=== PATIENT | female | born 1980 | race Two or more races ===

== ENCOUNTER 2021-12-13 09:54 | Outpatient (CLI) | payer MEDICAID | END 2021-12-13 23:59 | disposition home or self-care (01) | LOC: LAB 09:54 | PROVIDERS: ATTEND Student in an Organized Health Care Education/Training Program | DX: Z01.812 Encounter for preprocedural laboratory examination (principal); Z20.822 Contact with and (suspected) exposure to COVID-19 | CPT/HCPCS: C9803; U0003 ==

== ENCOUNTER 2021-12-19 10:05 | Inpatient (IN) | payer MEDICAID ==
[~2021-12-19] VITALS: Ht 154.9 cm; Wt 103.4 kg
[~2021-12-19 10:05] MED LIST: BUPIVACAINE 0.5 % PF 150 MG/30 ML VIAL ONE; EPINEPHRINE (1:1000) 1 MG/ML AMPUL ONE; methylPREDNISolone ACETATE 80 MG/ML VIAL ONE
--- NOTE | 2021-12-19 10:40 | NUR ---
MS RN ADMITTING NOTES PATIENT CAME IN FOR A DAY SURGERY. PATIENT A/O X4, ABLE TO MAKE NEEDS KNOWN. MEDICALLY STABLE. WILL CONTINUE TO MONITOR.
[2021-12-19] MEDS ORDERED: PRED5DRO16 RIGHTEYE (10:47)
[2021-12-19] MEDS ORDERED: LATA2.5D15 RIGHTEYE (10:47)
[2021-12-19 11:00] VITALS: BP 148/79
[2021-12-19] MEDS ORDERED: FENTANYL PF 100MCG/2ML AMPUL ONE ×3 (11:33→14:37)
[2021-12-19] MEDS ORDERED: ROCURONIUM BROMIDE 50 MG/5 ML ONE (11:34)
[2021-12-19] MEDS ORDERED: MIDAZOLAM HCL 2 MG/2ML VIAL ONE (11:34)
--- NOTE | 2021-12-19 11:35 | NUR ---
MS RN NOTES PATIENT PICKED UP BY OR
--- NOTE | 2021-12-19 14:40 | NUR ---
MS RN NOTES PATIENT BACK FROM OR. MEDICALLY STABLE. VS WNL. WILL CONTINUE TO MONITOR PATIENT.
[2021-12-19] MEDS ORDERED: ACETAMINOPHEN 325 MG TABLET PO PRN ×2 (15:00)
[2021-12-19] MEDS ORDERED: oxyCODONE/APAP (5/325 MG) 1 UDTAB TABLET PO PRN (15:00)
[2021-12-19] MEDS ORDERED: MORPHINE SULFATE INJ 2 MG/ML DISP.SYRIN IV PRN (15:00)
[2021-12-19] MEDS ORDERED: DOCUSATE SODIUM 100 MG CAPSULE PO PRN (15:00)
[2021-12-19 16:00] VITALS: BP 128/69
--- NOTE | 2021-12-19 18:41 | NUR ---
WAREHOUSE HELPER CLOSING NOTES PATIENT REMAINS IN BED, AWAKE, A/O X4. PATIENT ON OXYGEN THERAPY AT 2 LPM VIA NASAL CANULA; BREATHING EVEN AND UNLABORED; NO SOB NOTED. COMPLAINS OF MLD PAIN BUT NO MEDICATION REQUEST. IV ACCESS AT L HAND G #22 PRESENT AND INTACT; SL. ALL NEEDS ATTENDED DURING THE DAY. SAFETY PRECAUTIONS IN PLACE; BED IN LOW POSITION AND LOCKED, RAILS UP X2, CALL LIGHT WITHIN REACH. WILL ENDORSE TO TAPPER BIT NURSE FOR PETTY.
--- NOTE | 2021-12-19 19:30 | NUR ---
MS RN OPENING NOTES RECEIVED PT IN BED, AWAKE. A/O X4. PATIENT ON OXYGEN THERAPY AT 2 LPM VIA NASAL CANULA. NO SIOB OR S/S OF RESPIRATORY DISTRESS. IV ACCESS AT L HAND G #22 PRESENT AND INTACT; SL. SAFETY PRECAUTIONS IN PLACE. BED IN LOWEST LOCKED POSITION, HOB ELEVATED, SIDE RAILS UP X2, AND CALL LIGHT AND TABLE WITHIN REACH. WILL CONTINUE WITH PLAN OF CARE.
[2021-12-19 20:00] VITALS: BP 136/75
[2021-12-19] MEDS: oxyCODONE/APAP (5/325 MG) 1 UDTAB TABLET PO PRN (21:07)
--- NOTE | 2021-12-19 21:07 | NUR ---
RN NOTE PT COMPLAINED OF THROBBING PAIN 8/10 OF THE LEFT LEG. ADMINISTERED PERCOCET 5-325 2 TABS FOR SEVERE PAIN ORDERED. VSS. WILL CONTINUE WITH PLAN OF CARE.
[2021-12-20] MEDS: oxyCODONE/APAP (5/325 MG) 1 UDTAB TABLET PO PRN (01:51)
--- NOTE | 2021-12-20 06:41 | NUR ---
MS RN CLOSING NOTES PT IN BED RESTING, EASILY AROUSABLE. A/O X4. PT STABLE ON ROOM AIR, O2 SAT 99%. NO SOB OR S/S OF RESPIRATORY DISTRESS. IV ACCESS AT L HAND G #22 PRESENT AND INTACT; SL. ALL NEEDS MET AT THIS TIME. SAFETY PRECAUTIONS IN PLACE AT ALL TIMES. BED IN LOWEST LOCKED POSITION, HOB ELEVATED, SIDE RAILS UP X2, AND CALL LIGHT AND TABLE WITHIN REACH. WILL ENDORSE TO ONCOMING NURSE FOR PETTY.
[2021-12-20 08:00] VITALS: BP 115/73
--- NOTE | 2021-12-20 08:00 | NUR ---
m/s database modeler: initial assessment received pt in bed awake, a/ox4. no c/o pain at this time. left knee with immobilizer and with surgical dressing in place. instructed to call for assistance. pt for d'c home today.
--- NOTE | 2021-12-20 10:30 | NUR ---
m/s documentation lead: md visit seen by dr. martinez and informed her of discharge home today with verbal instructions. pt verbalized understanding.
--- NOTE | 2021-12-20 11:05 | NUR ---
m/s facilities project manager: notes discharge instructions given to pt and verbalized understanding. h/l removed with tip intact. awaiting for to come and pick her up.
--- NOTE | 2021-12-20 12:35 | NUR ---
m/s extruder operator multiple: notes discharge home accompanied by via private car in stable condition with valuables and d'c papers.
[2021-12-20] MEDS ORDERED: prednisoLONE ACET 1% OPHT DROP 5 ML BOTTLE RIGHTEYE SCH (13:00)
[2021-12-20] MEDS ORDERED: LATANOPROST EYE DROP 0.005% 2.5 ML BOTTLE RIGHTEYE SCH (22:00)
== END 2021-12-20 12:40 | disposition home or self-care (01) | DRG 313 ==
LOC: DS 10:05 → MED 10:12
PROVIDERS: ADMIT Nurse Practitioner Acute Care; ATTEND Nurse Practitioner Acute Care
PROC: 0MRP47Z Replacement of Left Knee Bursa and Ligament with Autologous Tissue Substitute, Percutaneous Endoscopic Approach (ICD-10-PCS; principal; 2021-12-19)
PROC: 0LBP4ZZ Excision of Left Lower Leg Tendon, Percutaneous Endoscopic Approach (ICD-10-PCS; 2021-12-19)
PROC: 0SBD4ZZ Excision of Left Knee Joint, Percutaneous Endoscopic Approach (ICD-10-PCS; 2021-12-19)
DX: S83.242A Other tear of medial meniscus, current injury, left knee, initial encounter (principal); D64.9 Anemia, unspecified; H40.9 Unspecified glaucoma; S83.512A Sprain of anterior cruciate ligament of left knee, initial encounter; M65.9 Synovitis and tenosynovitis, unspecified; M94.262 Chondromalacia, left knee; Z79.899 Other long term (current) drug therapy; X58.XXXA Exposure to other specified factors, initial encounter; Y92.9 Unspecified place or not applicable; Z86.16 Personal history of COVID-19
CPT/HCPCS: 84703-TC; 97116-TC; 97530-TC; A4217; C1713; G0378; J0171; J0330; J0690; J1040; J1100; J1885; J2250; J2405; J2704; J3010; J3490; J7030; L1830